=== PATIENT | male | born 1940 | race Caucasian/White ===

== ENCOUNTER 2017-09-26 17:15 | Emergency (ER) | payer MEDICARE, OTHER ==
[2017-09-26 17:23] VITALS: TEMP 97.9
[2017-09-26] MEDS ORDERED: SODIUM CHLORIDE 0.9% 1,000 ML IV STA (18:04)
[2017-09-26 18:34] VITALS: BP 172/92; RESP 18
[2017-09-26 18:44] LABS: Basophils # (A) 0.2 k/uL (0-0.2); Basophils % (A) 2 %; Eosinophils # (A) 0.3 k/uL (0-0.7); Eosinophils % (A) 3 %; HCT 50.8 % (39.0-53.0); HGB 16.5 gm/dL (13.0-17.5); Lymphocytes # (A) 1.9 k/uL (1.0-4.8); Lymphocytes % (A) 20 %; MCH 28.5 pg (25.0-35.0); MCHC 32.5 g/dL (31.0-37.0); MCV 87.6 fL (80.0-100.0); Mean Platelet Volume 7.4; Monocytes # (A) 0.6 k/uL (0-1.0); Monocytes % (A) 6 %; Neutrophils # (A) 6.5 k/uL (1.3-7.7); Neutrophils % (A) 68 %; Platelet Count 238 k/uL (150-450); RDW 13.2 % (11.5-15.5); WBC 9.6 k/uL (3.8-10.6)
[2017-09-26 18:49] LABS: Albumin 4.2 g/dL (3.5-5.0); Calcium 9.7 mg/dL (8.4-10.2); Magnesium 2.2 mg/dL (1.6-2.3); Partial Thromboplastin Time 23.3 sec (22.0-30.0); Phosphorus 3.4 mg/dL (2.5-4.5); Potassium 4.2 mmol/L (3.5-5.1); Prothrombin Time 10.3 sec (9.0-12.0); Total Bilirubin 0.4 mg/dL (0.2-1.3); Total Protein 7.1 g/dL (6.3-8.2)
--- NOTE | 2017-09-26 19:10 | ED ---
General Adult HPI - General Chief complaint: Weakness Stated complaint: Weakness/numbness rt side Time Seen by Provider: 09/26/17 17:38 Source: patient, RN notes reviewed, old records reviewed Mode of arrival: ambulatory Limitations: no limitations - History of Present Illness Initial comments: This is a 77-year-old male to the ER for evaluation. Patient is ER for evaluation regarding possible stroke, sent in for evaluation. Patient states he 's been complaining some tingling in his right hand and tingling in the right side of his face. No other complaints no recent travel history no sick contacts no headaches or trauma. No recent change in medications. Patient does admit to daily smoking and drinking. Denies any other medical history patient denies any change in symptoms. - Related Data Home Medications Medication Instructions Recorded Confirmed Aspirin EC [Ecotrin Low Dose] 81 mg PO DAILY 09/26/17 09/26/17 Allergies Allergy/AdvReac Type Severity Reaction Status Date / Time No Known Allergies Allergy Verified 09/26/17 17:48 Review of Systems ROS Statement: Those systems with pertinent positive or pertinent negative responses have been documented in the HPI. ROS Other: All systems not noted in ROS Statement are negative. Past Medical History Past Medical History: No Reported History History of Any Multi-Drug Resistant Organisms: None Reported Past Surgical History: No Surgical Hx Reported Past Psychological History: No Psychological Hx Reported Smoking Status: Current every day smoker Past Alcohol Use History: Daily Past Drug Use History: None Reported General Exam - General Exam Comments Initial Comments: NIH of 0, no sensation or motor deficit Limitations: no limitations General appearance: alert, in no apparent distress Head exam: Present: atraumatic, normocephalic, normal inspection Eye exam: Present: normal appearance, PERRL, EOMI. Absent: scleral icterus, conjunctival injection, periorbital swelling ENT exam: Present: normal exam, mucous membranes moist Neck exam: Present: normal inspection. Absent: tenderness, meningismus, lymphadenopathy Respiratory exam: Present: normal lung sounds bilaterally. Absent: respiratory distress, wheezes, rales, rhonchi, stridor Cardiovascular Exam: Present: regular rate, normal rhythm, normal heart sounds. Absent: systolic murmur, diastolic murmur, rubs, gallop, clicks GI/Abdominal exam: Present: soft, normal bowel sounds. Absent: distended, tenderness, guarding, rebound, rigid Extremities exam: Present: normal inspection, full ROM, normal capillary refill. Absent: tenderness, pedal edema, joint swelling, calf tenderness Back exam: Present: normal inspection Neurological exam: Present: alert, oriented X3, CN II-XII intact Psychiatric exam: Present: normal affect, normal mood Skin exam: Present: warm, dry, intact, normal color. Absent: rash Course Vital Signs 09/26/17 09/26/17 09/26/17 17:18 18:32 19:00 Temperature 97.9 F Pulse Rate 81 76 83 Respiratory 22 18 18 Rate Blood Pressure 172/92 O2 Sat by Pulse 100 98 Oximetry - Reevaluation(s) Reevaluation #1: 09/26/17 19:08 patient refusing to stay, states he wants to be discharged EKG Findings - EKG Comments: EKG Findings:: EKG shows sinus rhythm rate of 74, OH 190, QRS 86, QTc 432 Medical Decision Making - Medical Decision Making 77 male the ER for evaluation. Patient coming in with significant right- sidedtingling of his right arm. Patient has had symptoms for a week. [facility] to [facility] for evaluation. Patient has normal CT negative neurological testing, patient can be discharged home - Lab Data Result diagrams: 09/26/17 18:20 09/26/17 18:20 Lab Results 09/26/17 09/26/17 09/26/17 Range/Units 18:20 18:20 18:20 WBC 9.6 (3.8-10.6) k/uL RBC 5.80 (4.30-5.90) m/uL Hgb 16.5 (13.0-17.5) gm/dL Hct 50.8 (39.0-53.0) % MCV 87.6 (80.0-100.0) fL MCH 28.5 (25.0-35.0) pg MCHC 32.5 (31.0-37.0) g/dL RDW 13.2 (11.5-15.5) % Plt Count 238 (150-450) k/uL Neutrophils % 68 % Lymphocytes % 20 % Monocytes % 6 % Eosinophils % 3 % Basophils % 2 % Neutrophils # 6.5 (1.3-7.7) k/uL Lymphocytes # 1.9 (1.0-4.8) k/uL Monocytes # 0.6 (0-1.0) k/uL Eosinophils # 0.3 (0-0.7) k/uL Basophils # 0.2 (0-0.2) k/uL PT (9.0-12.0) sec INR (<1.2) APTT (22.0-30.0) sec Sodium 141 (137-145) mmol/L Potassium 4.2 (3.5-5.1) mmol/L Chloride 107 (98-107) mmol/L Carbon Dioxide 22 (22-30) mmol/L Anion Gap 12 mmol/L BUN 23 H (9-20) mg/dL Creatinine 1.24 (0.66-1.25) mg/dL Est GFR (CKD-EPI)AfAm 64 (>60 ml/min/1.73 sqM) Est GFR (CKD-EPI)NonAf 55 (>60 ml/min/1.73 sqM) Glucose 126 H (74-99) mg/dL Calcium 9.7 (8.4-10.2) mg/dL Phosphorus 3.4 (2.5-4.5) mg/dL Magnesium 2.2 (1.6-2.3) mg/dL Total Bilirubin 0.4 (0.2-1.3) mg/dL AST 20 (17-59) U/L ALT 24 (21-72) U/L Alkaline Phosphatase 113 (38-126) U/L Total Creatine Kinase 53 L (55-170) U/L CK-MB (CK-2) 0.9 (0.0-2.4) ng/mL CK-MB (CK-2) Rel Index 1.7 Troponin I 0.012 (0.000-0.034) ng/mL Total Protein 7.1 (6.3-8.2) g/dL Albumin 4.2 (3.5-5.0) g/dL TSH 2.210 (0.465-4.680) mIU/L 09/26/17 Range/Units 18:20 WBC (3.8-10.6) k/uL RBC (4.30-5.90) m/uL Hgb (13.0-17.5) gm/dL Hct (39.0-53.0) % MCV (80.0-100.0) fL MCH (25.0-35.0) pg MCHC (31.0-37.0) g/dL RDW (11.5-15.5) % Plt Count (150-450) k/uL Neutrophils % % Lymphocytes % % Monocytes % % Eosinophils % % Basophils % % Neutrophils # (1.3-7.7) k/uL Lymphocytes # (1.0-4.8) k/uL Monocytes # (0-1.0) k/uL Eosinophils # (0-0.7) k/uL Basophils # (0-0.2) k/uL PT 10.3 (9.0-12.0) sec INR 1.0 (<1.2) APTT 23.3 (22.0-30.0) sec Sodium (137-145) mmol/L Potassium (3.5-5.1) mmol/L Chloride (98-107) mmol/L Carbon Dioxide (22-30) mmol/L Anion Gap mmol/L BUN (9-20) mg/dL Creatinine (0.66-1.25) mg/dL Est GFR (CKD-EPI)AfAm (>60 ml/min/1.73 sqM) Est GFR (CKD-EPI)NonAf (>60 ml/min/1.73 sqM) Glucose (74-99) mg/dL Calcium (8.4-10.2) mg/dL Phosphorus (2.5-4.5) mg/dL Magnesium (1.6-2.3) mg/dL Total Bilirubin (0.2-1.3) mg/dL AST (17-59) U/L ALT (21-72) U/L Alkaline Phosphatase (38-126) U/L Total Creatine Kinase (55-170) U/L CK-MB (CK-2) (0.0-2.4) ng/mL CK-MB (CK-2) Rel Index Troponin I (0.000-0.034) ng/mL Total Protein (6.3-8.2) g/dL Albumin (3.5-5.0) g/dL TSH (0.465-4.680) mIU/L - Radiology Data Radiology results: report reviewed (CT brain is negative for acute disease), image reviewed Disposition Clinical Impression: Paresthesia, Facial paresthesia, Right hand paresthesia Disposition: HOME SELF-CARE Condition: Good Instructions: Paresthesia (ED) Referrals: [facility],Clinic [Primary Care Provider] - 1-2 days
--- NOTE | 2017-09-26 19:10 | CT ---
EXAMINATION: CT brain wo con DATE AND TIME: 09/26/2017 6:59 PM ORDERING PROVIDER: Nura Mitchell DO CLINICAL INDICATION: pain right-sided hand numbness TECHNIQUE: Standard departmental protocol. COMPARISON: None. DESCRIPTION: The calvarium is intact. There is no intracranial hemorrhage. There is no mass or mass e ffect. No definite attenuation defect. Remainder of the intra-axial and extra-axial compartment exami nation is unremarkable. The paranasal sinuses, middle ear cavities, and mastoid sinus air cells are c lear. The orbits are intact. IMPRESSION: NO ACUTE PROCESS, CT HEAD WITHOUT CONTRAST.
[2017-09-26 19:11] LABS: Creatine Kinase MB 0.9 ng/mL (0.0-2.4); Troponin I 0.012 ng/mL (0.000-0.034)
--- NOTE | 2017-09-26 19:12 | XR ---
EXAMINATION: XR chest 2V DATE AND TIME: 09/26/2017 7:02 PM ORDERING PROVIDER: Nura Mitchell DO CLINICAL INDICATION: Weakness TECHNIQUE: AP and lateral COMPARISON: None. DESCRIPTION: The lungs are clear. The pleural spaces are negative. The cardiac silhouette is not enlarged. The mediastinal and pleural silhouettes are unremarkable. The skeletal structures are intact without focal findings. The soft tissues are unremarkable. IMPRESSION: NO ACUTE PROCESS.
[2017-09-26 19:13] VITALS: PULSE 83
== END 2017-09-26 20:00 | disposition home or self-care (01) ==
LOC: EC 17:15
DX: R20.2 Paresthesia of skin (principal); F17.200 Nicotine dependence, unspecified, uncomplicated; Z79.82 Long term (current) use of aspirin
CPT/HCPCS: 36415; 70450; 71046; 80053; 82550; 82553; 83735; 84100; 84443; 84484; 85025; 85610; 85730; 93005; 96360; 99285

== ENCOUNTER → 2019-05-07 | Outpatient (CLI) | payer MEDICARE, OTHER ==
--- NOTE | 2019-05-07 10:12 | US ---
EXAMINATION TYPE: US carotid duplex BILAT DATE OF EXAM: 05/07/2019 COMPARISON: NONE CLINICAL HISTORY: I35.8 Heart murmur aortic, I73.9 claudication. Brut EXAM MEASUREMENTS: RIGHT: Peak Systolic Velocity (PSV) cm/sec ----- Right CCA: 104.3 ----- Right ICA: 166.9 ----- Right ECA: 117.1 ICA/CCA ratio: 1.6 RIGHT: End Diastole cm/sec ----- Right CCA: 14.7 ----- Right ICA: 33.1 ----- Right ECA: 0 LEFT: Peak Systolic Velocity (PSV) cm/sec ----- Left CCA: 120.9 ----- Left ICA: 231.6 ----- Left ECA: 315.4 ICA/CCA ratio: 1.7 LEFT: End Diastole cm/sec ----- Left CCA: 25.1 ----- Left ICA: 55.7 ----- Left ECA: 0 VERTEBRALS (direction of flow): Right Vertebral: Antegrade Left Vertebral: Antegrade Rhythm: Normal Bilateral elevated velocities. IMPRESSION: Diffusely elevated velocity suggests underlying hypertension. Elevated velocities of the common carotid arteries lower the internal carotid artery to common carotid artery ratio. It is susp ected there is 50-69% stenosis of the bilateral internal carotid arteries. CTA neck could more accura tely assess the degree of stenosis. Criteria for Assigning % of Stenosis / Diameter reduction (Estimation based on the indirect measurements of the internal carotid artery velocities (ICA PSV). 1. Normal (no stenosis)=ICA PSV < 125 cm/s: ratio < 2.0: ICA EDV<40 cm/s. 2. Less than 50% stenosis=ICA PSV < 125 cm/s: ratio < 2.0: ICA EDV<40 cm/s. 3. 50 to 69% stenosis=ICA PSV of 125 to 230 cm/s: ration 2.0 ? 4.0: ICA EDV 40-100 cm/s. 4. Greater than 70% stenosis to near occlusion= ICA PSV > 230 cm/s: ratio > 4.0: ICA EDV > 100 cm/s. 5. Near occlusion= ICA PSV velocities may be low or undetectable: variable ratio and ICA EDV. 6. Total occlusion=unable to detect flow.
--- NOTE | 2019-05-07 10:51 | ECHOF ---
Referral Reason:I35.8 Heart murmor aortic, MEASUREMENTS -------- HEIGHT: 180.3 cm WEIGHT: 77.1 kg BP: IVSd: 1.5 cm (0.6 - 1.1) LVIDd: 3.8 cm (3.9 - 5.3) LVPWd: 1.4 cm (0.6 - 1.1) IVSs: 1.6 cm LVIDs: 3.7 cm LVPWs: 1.2 cm LA Diam: 3.7 cm (2.7 - 3.8) LAESV Index (A-L): 27.98 ml/m Ao Diam: 3.0 cm (2.0 - 3.7) AV Cusp: 1.6 cm (1.5 - 2.6) LA Diam: 4.2 cm (2.7 - 3.8) MV EXCURSION: 11.106 mm (> 18.000) MV EF SLOPE: 33 mm/s (70 - 150) EPSS: 1.1 cm MV E Marquis: 0.54 m/s MV DecT: 273 ms MV A Marquis: 0.90 m/s MV E/A Ratio: 0.59 AR PHT: 592 ms RAP: 5.00 mmHg RVSP: 9.94 mmHg FINDINGS -------- Sinus rhythm. This was a technically adequate study. The left ventricular size is normal. There is moderate concentric left ventricular hypertrophy. O verall left ventricular systolic function is normal with, an EF between 55 - 60 %. The right ventricle is normal in size. The left atrial size is normal. The right atrial size is normal. Atrial & Ventricular Septum not Visualized. There is mild aortic valve sclerosis. There is mild aortic regurgitation. Mild mitral annular calcification present. Mild mitral regurgitation is present. Mild tricuspid regurgitation present. Right ventricular systolic pressure is normal at < 35 mmHg. There is no evidence of pulmonary hypertension. There is no pulmonic regurgitation present. The aortic root size is normal. There is no pericardial effusion. CONCLUSIONS -------- 1. Sinus rhythm. 2. This was a technically adequate study. 3. The left ventricular size is normal. 4. There is moderate concentric left ventricular hypertrophy. 5. Overall left ventricular systolic function is normal with, an EF between 55 - 60 %. 6. The right ventricle is normal in size. 7. The left atrial size is normal. 8. The right atrial size is normal. 9. Atrial & Ventricular Septum not Visualized. 10. There is mild aortic valve sclerosis. 11. There is mild aortic regurgitation. 12. Mild mitral annular calcification present. 13. Mild mitral regurgitation is present. 14. Mild tricuspid regurgitation present. 15. Right ventricular systolic pressure is normal at < 35 mmHg. 16. There is no evidence of pulmonary hypertension. 17. There is no pulmonic regurgitation present. 18. The aortic root size is normal. 19. There is no pericardial effusion. [employer]: Kailee Montes RDCS
== END ==
LOC: RADUSWWP 08:02
PROVIDERS: ATTEND Internal Medicine Cardiovascular Disease
DX: I08.3 Combined rheumatic disorders of mitral, aortic and tricuspid valves (principal); R93.0 Abnormal findings on diagnostic imaging of skull and head, not elsewhere classified
CPT/HCPCS: 93306; 93880; 93923

== ENCOUNTER → 2020-02-10 | Outpatient (CLI) | payer OTHER ==
--- NOTE | 2020-02-11 21:32 | CT ---
EXAMINATION TYPE: CT angio abd aorta w/Runoff DATE OF EXAM: 02/10/2020 COMPARISON: Arterial ultrasound lower extremity 05/07/2019. HISTORY: leg weakness CT DLP: 765.3 mGycm, Automated Exposure Control for Dose Reduction was Utilized. TECHNIQUE: Multiple thin slice images were obtained through the abdomen, pelvis, and lower extremitie s after administration of contrast. Patient was given Isovue-370, 100 cc intravenously. 3-D reconst ructed images and maximum intensity projection images were obtained of the abdomen, pelvis, and lower extremities. FINDINGS: CTA Abdomen and pelvis: Diffuse calcified and noncalcified atherosclerotic disease. The abdominal aorta does not demonstrate aneurysmal dilatation. There is a small dissection of the p osterolateral left infrarenal abdominal aorta distally just before the bifurcation (4:61, 8:54) with similar enhancement within both lumens. Severe atherosclerotic soft and calcified plaque is identifie d within the abdominal aorta. 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 The right and single left renal arteries, with greater than 50% narrowing of the inferior right re nal artery and the single left renal artery origins. The right common iliac artery demonstrates narrowing of approximately 50% distally just before the bi furcation. The right external and internal iliac arteries are patent. The left common iliac artery an d internal iliac arteries are patent. The origin of the left external iliac artery demonstrates high- grade stenosis of 75-90%. Right lower extremity: The origin of the right superficial femoral artery demonstrates multifocal narrowing of 50-90%. The d istal superficial femoral artery is occluded. There is collateral reconstitution of the popliteal art mago. There is one-vessel runoff crossing the ankle joint via the posterior tibial artery. Left lower extremity: There is high-grade stenosis of 90% of the proximal left superficial femoral artery. The mid and dist al superficial femoral artery are occluded. There is collateral reconstitution of the popliteal arter y at the level of the femoral condyles. There is 2 vessel runoff crossing the ankle joint via the pos terior tibial artery and diminutive anterior tibial artery. VISCERA: Bibasilar atelectasis. Hepatic cysts. Gallbladder, biliary ductal system, pancreas, spleen, and adrenal glands are unremarkable. Right renal cyst. No hydronephrosis bilaterally. No evidence of bowel obstruction. Colonic diverticulosis. No acute diverticulitis. Small hiatal hernia. No evidence of pneumoperitoneum or free fluid. Urinary bladder unremarkable. Prostatomegaly. No lymphadenopathy. The osseous structures appear intact. IMPRESSIONS: 1. No abdominal aortic aneurysm. Small distal infrarenal abdominal aortic dissection. 2. 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 Significant stenosis of the distal right common iliac artery and high-grade stenosis of the origin of the left external iliac artery. Multifocal significant narrowing of the bilateral weber perficial femoral arteries with occlusion distally. 3. One vessel runoff to the right foot. Two-vessel runoff to the left foot.
== END | disposition home or self-care (01) ==
LOC: RADCTMAIN 11:41
PROVIDERS: ATTEND Surgery
DX: I77.4 Celiac artery compression syndrome (principal); I70.0 Atherosclerosis of aorta; I77.1 Stricture of artery
CPT/HCPCS: 82565; 84520; 75635; 36415; Q9967

== ENCOUNTER → 2020-02-28 | Outpatient (CLI) | payer MEDICARE, OTHER ==
[2020-02-28 09:03] LABS: Basophils # (A) 0.3 k/uL (0-0.2); Basophils % (A) 3 %; Eosinophils # (A) 0.5 k/uL (0-0.7); Eosinophils % (A) 5 %; HCT 49.9 % (39.0-53.0); HGB 15.5 gm/dL (13.0-17.5); Lymphocytes % (A) 20 %; MCH 28.7 pg (25.0-35.0); MCHC 31.1 g/dL (31.0-37.0); MCV 92.5 fL (80.0-100.0); Monocytes # (A) 0.6 k/uL (0-1.0); Monocytes % (A) 6 %; Neutrophils # (A) 6.4 k/uL (1.3-7.7); Neutrophils % (A) 64 %; Platelet Count 204 k/uL (150-450); RBC 5.39 m/uL (4.30-5.90); RDW 14.1 % (11.5-15.5)
[2020-02-28 09:20] LABS: Potassium 5.3 mmol/L (3.5-5.1)
== END | disposition home or self-care (01) ==
LOC: LABPAT 08:34
PROVIDERS: ATTEND Surgery
DX: Z01.818 Encounter for other preprocedural examination (principal); I74.9 Embolism and thrombosis of unspecified artery
CPT/HCPCS: 36415; 80051; 82565; 84520; 85025

== ENCOUNTER 2023-01-01 10:08 | Emergency (ER) | payer MEDICARE, OTHER ==
[2023-01-01 10:16] VITALS: TEMP 97.9
--- NOTE | 2023-01-01 10:35 | ED ---
General Adult HPI - General Chief complaint: Recheck/Abnormal Lab/Rx Stated complaint: neck pain Time Seen by Provider: 01/01/23 10:15 Source: patient, RN notes reviewed, old records reviewed Mode of arrival: ambulatory Limitations: no limitations - History of Present Illness Initial comments: This is an 82-year-old male who presents emergency Department complaining of having a checkup in the office today and the nurse practitioner listened to his carotid artery and thought he heard a bruit and sent the patient in for further evaluation. Patient states she's had no new symptoms in the last few days. Patient states he has had stiffness in his hands more in the right than the left over the last year and it improves as the day goes on. Patient states she also has some tingling to his fingertips over the last year that continues today. Patient states he does have a little his left arm but it's not as bad as the right arm. Patient denies any recent fever chills per patient denies any new weakness or new numbness. Patient denies chest pain difficult breathing shortness of breath. - Related Data Home Medications Medication Instructions Recorded Confirmed Rosuvastatin [Crestor] 10 mg PO DAILY 03/02/20 01/01/23 lisinopriL 20 mg PO DAILY 03/02/20 01/01/23 Cholecalciferol [Vitamin D3 (25 25 mcg PO DAILY 01/01/23 01/01/23 Mcg = 1000 Iu)] Clopidogrel [Plavix] 75 mg PO DAILY 01/01/23 01/01/23 Allergies Allergy/AdvReac Type Severity Reaction Status Date / Time No Known Allergies Allergy Verified 01/01/23 14:55 Review of Systems ROS Statement: Those systems with pertinent positive or pertinent negative responses have been documented in the HPI. ROS Other: All systems not noted in ROS Statement are negative. Past Medical History Past Medical History: Hypertension History of Any Multi-Drug Resistant Organisms: None Reported Past Surgical History: No Surgical Hx Reported Past Psychological History: No Psychological Hx Reported Smoking Status: Current every day smoker Past Alcohol Use History: Daily Past Drug Use History: None Reported General Exam - General Exam Comments Initial Comments: GENERAL: Patient is well-developed and well-nourished. Patient is nontoxic and well- hydrated and is in no acute distress. ENT: Neck is soft and supple. No significant lymphadenopathy is noted. Oropharynx is clear. Moist mucous membranes. Neck has full range of motion without eliciting any pain. EYES: The sclera were anicteric and conjunctiva were pink and moist. Extraocular movements were intact and pupils were equal round and reactive to light. Eyelids were unremarkable. PULMONARY: Unlabored respirations. Good breath sounds bilaterally. No audible rales rhonchi or wheezing was noted. CARDIOVASCULAR: There is a regular rate and rhythm without any murmurs gallops or rubs. ABDOMEN: Soft and nontender with normal bowel sounds. SKIN: Skin is clear with no lesions or rashes and otherwise unremarkable. NEUROLOGIC: Patient is alert and oriented x3. Cranial nerves II through XII are grossly intact. Patient has normal sensation to all his fingertips but he states on the right the first 3 fingers 1 through 3 are diminished when compared to the left. Patient has equal bacteriology professor bilaterally patient has good cap refill and good pulses radially bilaterally MUSCULOSKELETAL: Normal extremities with adequate strength and full range of motion. No lower extremity swelling or edema. No calf tenderness. LYMPHATICS: No significant lymphadenopathy is noted PSYCHIATRIC: Normal psychiatric evaluation. Normal interpersonal interactions appears functionally intact in deals appropriately with others. No signs of depression. No signs of anxiety. No delusions. No hallucinations. Limitations: no limitations Course Vital Signs 01/01/23 01/01/23 01/01/23 10:12 10:15 10:41 Temperature 97.9 F Pulse Rate 50 L 50 L Respiratory 20 16 20 Rate Blood Pressure 177/78 170/61 O2 Sat by Pulse 97 95 Oximetry 01/01/23 01/01/23 11:51 14:35 Temperature Pulse Rate 45 L 44 L Respiratory 18 18 Rate Blood Pressure 169/67 206/62 O2 Sat by Pulse 100 100 Oximetry Medical Decision Making - Medical Decision Making Was pt. sent in by a medical professional or institution (, PA, LINE RUNNER, urgent care, hospital, or [facility]...) When possible be specific @ -His primary medical care doctor sent him to the hospital Did you speak to anyone other than the patient for history (EMS, parent, family, police, friend...)? What history was obtained from this source @ -No Did you review nursing and triage notes (agree or disagree)? Why? @ -I reviewed and agree with nursing and triage notes Were old charts reviewed (outside hosp., previous admission, EMS record, old EKG, old radiological studies, urgent care reports/EKG's, [facility] records)? Report findings @ -No old charts were reviewed Differential Diagnosis (chest pain, altered mental status, abdominal pain women, abdominal pain men, vaginal bleeding, weakness, fever, dyspnea, syncope, headache, dizziness, GI bleed, back pain, seizure, CVA, palpatations, mental health, musculoskeletal)? @ -Stroke, arterial occlusion radiculopathy, cervical stenosis, this is not all inclusive list EKG interpreted by me (3pts min.). @ -As above X-rays interpreted by me (1pt min.). @ -X-ray of the cervical spine some degenerative disc disease. CT interpreted by me (1pt min.). @ -CT angiography of the head and neck was interpreted by the radiologist and it showed 90% stenosis of the left internal carotid and 75% stenosis on the right of the bifurcation U/S interpreted by me (1pt. min.). @ -Carotid ultrasound showed a 75% - 100% occlusion on the right What testing was considered but not performed or refused? (CT, X-rays, U/S, l abs)? Why? @ -None What meds were considered but not given or refused? Why? @ -None Did you discuss the management of the patient with other professionals (professionals i.e. , PA, LINE RUNNER, lab, RT, psych nurse, social media marketer, photographic printer, teacher, senior grants officer, high risk case manager)? Give summary @ -I spoke with Was smoking cessation discussed for >3mins.? @ -No Was critical care preformed (if so, how long)? @ -No Were there social determinants of health that impacted care today? How? (Homelessness, low income, unemployed, alcoholism, drug addiction, transportation, low edu. Level, literacy, decrease access to med. care, care home, rehab)? @ -No Was there de-escalation of care discussed even if they declined (Discuss DNR or withdrawal of care, Hospice)? DNR status @ -No What co-morbidities impacted this encounter? (DM, HTN, Smoking, COPD, CAD, Cancer, CVA, ARF, Chemo, Hep., AIDS, mental health diagnosis, sleep apnea, morbid obesity)? @ -None Was patient admitted / discharged? Hospital course, mention meds given and route, prescriptions, significant lab abnormalities, going to OR and other pertinent info. @ -Patient did have some stenosis bilaterally Dr. Deshpande stated that he will follow patient up as an outpatient or his partner will.. Undiagnosed new problem with uncertain prognosis? @ -No Drug Therapy requiring intensive monitoring for toxicity (Heparin, Nitro, Insulin, Cardizem)? @ -No Were any procedures done? @ -No Diagnosis/symptom? @ -Carotid stenosis Acute, or Chronic, or Acute on Chronic? @ -Chronic Uncomplicated (without systemic symptoms) or Complicated (systemic symptoms)? @ -Complicated Side effects of treatment? @ -No Exacerbation, Progression, or Severe Exacerbation? @ -No Poses a threat to life or bodily function? How? (Chest pain, [place], VA, pneumonia, PE, COPD, DKA, ARF, appy, cholecystitis, CVA, Diverticulitis, Homicidal, Suicidal, threat to staff... and all critical care pts) @ -No - Lab Data Result diagrams: 01/01/23 12:37 01/01/23 12:50 Lab Results 01/01/23 01/01/23 Range/Units 12:37 12:50 WBC 8.6 (3.8-10.6) k/uL RBC 4.77 (4.30-5.90) m/uL Hgb 13.4 (13.0-17.5) gm/dL Hct 41.8 (39.0-53.0) % MCV 87.5 (80.0-100.0) fL MCH 28.0 (25.0-35.0) pg MCHC 32.0 (31.0-37.0) g/dL RDW 14.6 (11.5-15.5) % Plt Count 247 (150-450) k/uL MPV 7.7 Neutrophils % 66 % Lymphocytes % 20 % Monocytes % 6 % Eosinophils % 5 % Basophils % 1 % Neutrophils # 5.7 (1.3-7.7) k/uL Lymphocytes # 1.7 (1.0-4.8) k/uL Monocytes # 0.5 (0-1.0) k/uL Eosinophils # 0.4 (0-0.7) k/uL Basophils # 0.1 (0-0.2) k/uL Sodium 136 L (137-145) mmol/L Potassium 4.8 (3.5-5.1) mmol/L Chloride 111 H (98-107) mmol/L Carbon Dioxide 17 L (22-30) mmol/L Anion Gap 8 mmol/L BUN 27 H (9-20) mg/dL Creatinine 1.21 (0.66-1.25) mg/dL Est GFR (CKD-EPI)AfAm 63 (>60 ml/min/1.73 sqM) Est GFR (CKD-EPI)NonAf 55 (>60 ml/min/1.73 sqM) Glucose 79 (74-99) mg/dL Calcium 8.7 (8.4-10.2) mg/dL Total Bilirubin 0.5 (0.2-1.3) mg/dL AST 19 (17-59) U/L ALT 12 (4-49) U/L Alkaline Phosphatase 88 (38-126) U/L Total Protein 6.4 (6.3-8.2) g/dL Albumin 3.6 (3.5-5.0) g/dL Disposition Clinical Impression: Carotid stenosis Disposition: HOME SELF-CARE Condition: Good Instructions (If sedation given, give patient instructions): Carotid Artery Disease (DC) Additional Instructions: Patient should follow-up with Dr. Perez Is patient prescribed a controlled substance at d/c from ED?: No Referrals: [facility],Clinic [Primary Care Provider] - 1-2 days Time of Disposition: 15:00
--- NOTE | 2023-01-01 11:08 | XR ---
EXAMINATION TYPE: XR cervical spine comp DATE OF EXAM: 01/01/2023 11:04 AM INDICATION: Patient age:Male; 82 years old; Reason for study: Tingling in his hands; PHH. COMPARISON: None TECHNIQUE: The cervical spine was imaged in frontal, lateral, bilateral oblique, and odontoid project ions. FINDINGS: The osseous structures show normal alignment without evidence of an acute fracture. There are osteoph ytes noted throughout the cervical spine on the anterior and lateral aspects of the vertebral bodies. Disc space narrowing demonstrated at C6-C7. Neural foraminal narrowing at C3-C4 and C4-C5. Pedicles are intact. Soft tissues are within normal limits. The odontoid appears intact. IMPRESSION: 1. No fracture or dislocation. 2. Mild degenerative disc disease changes of the cervical spine.
--- NOTE | 2023-01-01 11:19 | US ---
EXAMINATION TYPE: US carotid duplex BILAT DATE OF EXAM: 01/01/2023 COMPARISON: US 2019 CLINICAL INDICATION: Male, 82 years old with history of Tingling in his hands with some weakness of h and; TECHNIQUE: Carotid duplex ultrasound examination. Indirect Doppler criteria was utilized. FINDINGS: EXAM MEASUREMENTS: RIGHT: Peak Systolic Velocity (PSV) cm/sec ----- Right CCA: 51.3 ----- Right ICA: 262.3 ----- Right ECA: 99.1 ICA/CCA ratio: 5.1 RIGHT: End Diastole cm/sec ----- Right CCA: 7.4 ----- Right ICA: 18.7 ----- Right ECA: 0.0 LEFT: Peak Systolic Velocity (PSV) cm/sec ----- Left CCA: 73.3 ----- Left ICA: 260.6 ----- Left ECA: 163.9 ICA/CCA ratio: 3.6 LEFT: End Diastole cm/sec ----- Left CCA: 0.0 ----- Left ICA: 47.2 ----- Left ECA: 0.0 VERTEBRALS (direction of flow): Right Vertebral: Antegrade Left Vertebral: Antegrade Rhythm: Normal Right ICA/CCA ratio: 5.1 Left ICA/CCA ratio: 3.6 Moderate atherosclerotic plaque within the bilateral carotid bulbs. IMPRESSION: 1. Greater than 70% stenosis to near occlusion of the right internal carotid artery at its origin. 2. 50-69% stenosis at the origin of the left internal carotid artery. Criteria for Assigning % of Stenosis / Diameter reduction (Estimation based on the indirect measurements of the internal carotid artery velocities (ICA PSV). 1. Normal (no stenosis)=ICA PSV < 125 cm/s: ratio < 2.0: ICA EDV<40 cm/s. 2. Less than 50% stenosis=ICA PSV < 125 cm/s: ratio < 2.0: ICA EDV<40 cm/s. 3. 50 to 69% stenosis=ICA PSV of 125 to 230 cm/s: ration 2.0 ? 4.0: ICA EDV 40-100 cm/s. 4. Greater than 70% stenosis to near occlusion= ICA PSV > 230 cm/s: ratio > 4.0: ICA EDV > 100 cm/s. 5. Near occlusion= ICA PSV velocities may be low or undetectable: variable ratio and ICA EDV. 6. Total occlusion=unable to detect flow.
[2023-01-01 11:55] VITALS: RESP 18
[2023-01-01 12:43] LABS: Basophils # (A) 0.1 k/uL (0-0.2); Basophils % (A) 1 %; Eosinophils # (A) 0.4 k/uL (0-0.7); Eosinophils % (A) 5 %; HCT 41.8 % (39.0-53.0); HGB 13.4 gm/dL (13.0-17.5); Lymphocytes # (A) 1.7 k/uL (1.0-4.8); Lymphocytes % (A) 20 %; MCV 87.5 fL (80.0-100.0); Mean Platelet Volume 7.7; Monocytes # (A) 0.5 k/uL (0-1.0); Monocytes % (A) 6 %; Neutrophils # (A) 5.7 k/uL (1.3-7.7); Neutrophils % (A) 66 %; Platelet Count 247 k/uL (150-450); RBC 4.77 m/uL (4.30-5.90); RDW 14.6 % (11.5-15.5); WBC 8.6 k/uL (3.8-10.6)
[2023-01-01 13:25] LABS: ALT 12 U/L (4-49); AST 19 U/L (17-59); African American GFR (CKD) 63 (>60 ml/min/1.73 sqM); Albumin 3.6 g/dL (3.5-5.0); Alkaline Phosphatase 88 U/L (38-126); Anion Gap 8 mmol/L; Blood Urea Nitrogen 27 mg/dL (9-20); Calcium 8.7 mg/dL (8.4-10.2); Carbon Dioxide 17 mmol/L (22-30); Chloride 111 mmol/L (98-107); Glucose 79 mg/dL (74-99); Non-African American GFR(CKD) 55 (>60 ml/min/1.73 sqM); Potassium 4.8 mmol/L (3.5-5.1); Sodium 136 mmol/L (137-145); Total Bilirubin 0.5 mg/dL (0.2-1.3); Total Protein 6.4 g/dL (6.3-8.2)
--- NOTE | 2023-01-01 14:32 | CT ---
EXAMINATION TYPE: CODE STROKE: CTA head neck CT DLP: 1655 mGycm, Automated exposure control for dose reduction was used. DATE OF EXAM: 01/01/2023 2:21 PM COMPARISON: CT same day of the brain.. CLINICAL INDICATION:Male, 82 years old with history of Tingling to bilateral arms; TECHNIQUE: Axially acquired helical CT angiogram of the head and neck was obtained with contrast. Axi al images are supplemented with 3D reconstructions [facility] criteria used. Contrast used: 65 cc of Isovue-370 Oral contrast used: None. FINDINGS: CTA HEAD: No evidence of acute intracranial hemorrhage, mass effect, or midline shift. The ventricles, sulci, a nd cisterns are unremarkable. Bilaterally aphakia. The visualized portions of the internal carotid arteries, middle cerebral arteries, anterior cerebral arteries, and posterior cerebral arteries are patent. Arthritic sclerosis of the carotid siphons matteo aterally. Atherosclerosis of the cavernous portions with at least 50% stenosis of the petrous portion of the internal carotid artery secondary to calcified and noncalcified plaque bilaterally. The basilar and vertebral arteries are patent. CTA NECK: Right Carotid System: The common carotid and external carotid arteries are patent. There is approximately 75% stenosis at t he carotid bifurcation and 50-75% stenosis of the proximal internal carotid artery secondary to nonca lcified plaque. Left Carotid System: The common carotid and external carotid arteries are patent. There is approximately 25-50 % stenosis at the carotid bifurcation and at least 90% stenosis of the proximal internal carotid artery secondar y to noncalcified plaque. Vertebral arteries are patent without evidence hemodynamically significant stenosis. Atherosclerosis of the intracranial portion of the left and vertebral artery. The right vertebral artery is diminutiv e. 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 There is at least 50% narrowing of the left subclavian artery ju st past its origin secondary to noncalcified plaque. Large severe atherosclerotic plaquing of the aor ta. Paraseptal emphysema changes in the lung apices. Upper thorax: IMPRESSION: 1. 90% stenosis of the proximal left internal carotid artery secondary to noncalcified plaque. 2. 75% stenosis of the right carotid bifurcation secondary to noncalcified plaque. 3. 50-75 % stenosis of the proximal right internal carotid artery secondary to noncalcified plaque. 4. 25-50% stenosis of the left carotid bifurcation. 5. Diminutive right vertebral artery with dominant left. 6. At least 50% stenosis of the bilateral petrous portion of the internal carotid arteries secondary to calcified and noncalcified plaque. 7. No evidence of dissection of the cervical internal carotid arteries or vertebral arteries 8. No evidence of intracranial aneurysm.
[2023-01-01] MEDS ORDERED: ENALAPRILAT 1.25 MG/ML 1 ML VIAL IVP STA (15:25)
[2023-01-01] MEDS ORDERED: cloNIDine HCL 0.1 MG TAB PO STA (17:15)
[2023-01-01 19:27] VITALS: BP 182/60; PULSE 55
== END 2023-01-01 19:27 | disposition home or self-care (01) ==
LOC: EC 10:08
DX: I65.23 Occlusion and stenosis of bilateral carotid arteries (principal); I10 Essential (primary) hypertension; F17.200 Nicotine dependence, unspecified, uncomplicated; Z79.02 Long term (current) use of antithrombotics/antiplatelets; Z79.899 Other long term (current) drug therapy
CPT/HCPCS: 36415; 80053; 85025; 72050; 93880; 70496; 70498; 99284; 96374; Q9967

== ENCOUNTER → 2023-01-30 | Outpatient (CLI) | payer MEDICARE, OTHER ==
[2023-01-30 14:55] LABS: African American GFR (CKD) 54 (>60 ml/min/1.73 sqM); Blood Urea Nitrogen 30 mg/dL (9-20); Non-African American GFR(CKD) 47 (>60 ml/min/1.73 sqM)
--- NOTE | 2023-01-30 19:44 | CT ---
EXAMINATION TYPE: CT angio neck CT DLP: 366.90 mGycm, Automated exposure control for dose reduction was used. DATE OF EXAM: 01/30/2023 3:28 PM COMPARISON: CTA head neck 12/24/2022 carotid ultrasound 12/24/2022. CLINICAL INDICATION:Male, 82 years old with history of I65.29; PHH, CAROTID STENOSIS TECHNIQUE: Axially acquired helical CT angiogram of the neck was obtained with contrast utilizing 65 cc of Isovue-370 administered intravenously. Axial images are supplemented with 3D reconstructions wh ich were post-processed at an independent workstation. NASCET criteria used. FINDINGS: Right Carotid System: The common carotid artery and external carotid artery are patent. Atherosclerotic plaque at the carot id bifurcation resulting in 80% stenosis at the origin of the internal carotid artery. The remaining portions of the internal carotid artery demonstrate normal size without significant narrowing. Left Carotid System: The common carotid artery and external carotid artery are patent. Atherosclerotic plaque at the carot id bifurcation resulting in 90% stenosis at the origin of the internal carotid artery. The remaining portions of the internal carotid artery demonstrate normal size without significant narrowing. Vertebral arteries are patent. Mild short segment stenosis of the V4 segment of the left vertebral ar tim. The left vertebral artery is dominant with diminutive appearance of the right vertebral artery. 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 The origins of the great vessels are patent. Moderate atheroscle rotic plaque involving the aortic arch and its branches. Mild stenosis of the origin of the left comm on carotid artery secondary to calcified and noncalcified plaque. Mild to moderate stenosis origin of the left subclavian artery secondary to calcified and noncalcified plaque. Degenerative changes of the cervical spine. Several small subcentimeter hypodense nodules in the thyr oid. IMPRESSION: 1. No evidence of dissection of the cervical internal carotid arteries or vertebral arteries. 2. Approximately 90% stenosis origin of the left internal carotid artery and 80% stenosis at the orig in of the right internal carotid artery secondary to calcified plaque. Similar to prior examination. 3. Mild stenosis at the origin of the left common carotid artery with mild to moderate stenosis at th e origin of the left subclavian artery secondary to calcified and noncalcified plaque. 4. Short segment mild stenosis of the intracranial portion of the left vertebral artery.
== END | disposition home or self-care (01) ==
LOC: RADCTMAIN 14:17
PROVIDERS: ATTEND Surgery
DX: I65.23 Occlusion and stenosis of bilateral carotid arteries (principal)
CPT/HCPCS: 82565; 84520; 70498; Q9967

== ENCOUNTER → 2024-11-08 | Outpatient (CLI) | payer OTHER ==
--- NOTE | 2024-11-08 09:16 | US ---
EXAMINATION TYPE: US carotid duplex BILAT DATE OF EXAM: 11/08/2024 COMPARISON: CTA neck 01/30/2023, CTA head and neck 01/01/2023, carotid ultrasound 01/01/2023, 05/07/2019 CLINICAL INDICATION: Male, 84 years old with history of 65.23 OCCLUSION AND STENOSIS OF CAROTID ARTER IES; TECHNIQUE: Grayscale, color Doppler and spectral Doppler evaluation of the bilateral carotid systems and vertebral arteries. Indirect Doppler criteria was utilized. FINDINGS: EXAM MEASUREMENTS: RIGHT: Peak Systolic Velocity (PSV) cm/sec ----- Right CCA: 65.7 ----- Right ICA: 235.8 ----- Right ECA: 132.6 ICA/CCA ratio: 3.6 RIGHT: End Diastole cm/sec ----- Right CCA: 9.2 ----- Right ICA: 24.0 ----- Right ECA: 0.0 LEFT: Peak Systolic Velocity (PSV) cm/sec ----- Left CCA: 99.1 ----- Left ICA: 237.5 ----- Left ECA: 175.8 ICA/CCA ratio: 2.4 LEFT: End Diastole cm/sec ----- Left CCA: 0.0 ----- Left ICA: 44.1 ----- Left ECA: 0.0 VERTEBRALS (direction of flow): Right Vertebral: Antegrade Left Vertebral: Antegrade Rhythm: Normal Moderate atherosclerotic plaque within the bilateral carotid bulbs. IMPRESSION: Right: Greater than 70% stenosis of the right internal carotid artery at its origin. Left: Greater than 70% stenosis of the left internal carotid artery at its origin. Criteria for Assigning % of Stenosis / Diameter reduction (Estimation based on the indirect measurements of the internal carotid artery velocities (ICA PSV). 1. Normal (no stenosis)=ICA PSV < 180 cm/s: ratio < 2.0: ICA EDV<40 cm/s. 2. Less than 50% stenosis=ICA PSV < 180 cm/s: ratio < 2.0: ICA EDV<40 cm/s. 3. 50 to 69% stenosis=ICA PSV of 180 to 230 cm/s: ration 2.0 ? 4.0: ICA EDV 40-100 cm/s. PSV 125-180 cm/sec and ICA/CCA PSV Ratio ? 2.0 is also consistent with 50-69% stenosis 4. Greater than 70% stenosis to near occlusion= ICA PSV > 230 cm/s: ratio > 4.0: ICA EDV > 100 cm/s. 5. Near occlusion= ICA PSV velocities may be low or undetectable: variable ratio and ICA EDV. 6. Total occlusion=unable to detect flow. [facility], , 11/08/2024 9:14 AM
== END | disposition home or self-care (01) ==
LOC: RADUSWWP 08:08
PROVIDERS: ATTEND Family Medicine
DX: I65.23 Occlusion and stenosis of bilateral carotid arteries (principal)
CPT/HCPCS: 93880

== ENCOUNTER → 2024-12-15 | Outpatient (CLI) | payer OTHER ==
[2024-12-15 10:02] LABS: African American GFR (CKD) 31 (>60 ml/min/1.73 sqM); Blood Urea Nitrogen 48 mg/dL (9-20); Non-African American GFR(CKD) 27 (>60 ml/min/1.73 sqM)
== END | disposition home or self-care (01) ==
LOC: RADCTMAIN 09:08
PROVIDERS: ATTEND Surgery
DX: I73.9 Peripheral vascular disease, unspecified (principal)
CPT/HCPCS: 82565; 84520